=== PATIENT | female | born 1960 | race Caucasian/White ===

== ENCOUNTER 2016-07-17 13:19 | Emergency (ER) | payer SELFPAY ==
--- NOTE | 2016-07-17 15:44 | RAD ---
ACUTE ABDOMINAL SERIES 07/17/16 HISTORY: Nausea and vomiting. CHEST X-RAY: The cardiac silhouette and pulmonary vasculature are within normal limits. The lungs are clear. Ther e is mild right convexed curvature of the thoracic spine. No free intraperitoneal air is seen beneat h the hemidiaphragms. UPRIGHT AND SUPINE VIEWS OF THE ABDOMEN: There is nonspecific bowel gas pattern. No suspicious calcifications are seen. Osseous structures ar e intact. Calcifications overlie the lower pelvis overlying the region of the pubic bone which may b e related to phleboliths. IMPRESSION: Nonspecific bowel gas pattern. POS: [facility]
[2016-07-17] MEDS ORDERED: Ondansetron ODT 4 MG TAB ONE (15:45)
== END 2016-07-17 15:50 | disposition home or self-care (01) ==
LOC: MADERS 13:19
DX: K59.00 Constipation, unspecified (principal)
CPT/HCPCS: 74022; Q0162